=== PATIENT | male | born 1945 | race Caucasian/White ===

== ENCOUNTER 2019-12-21 22:50 | Emergency (ER) | payer MEDICARE ==
--- NOTE | 2019-12-21 23:51 | ER Document Report ---
ED Medical Screen (RME) - General Chief Complaint: General Weakness Stated Complaint: WEAKNESS/POSSIBLE SYNCOPE Time Seen by Provider: 12/21/19 23:47 Notes: 74-year-old male with history of cardiac disease presents for generalized weakness and near syncope. Per family patient has had generalized weakness for the past 3 weeks and has been evaluated by his PCP who diagnosed him with a bladder infection. Patient finished antibiotics, family thinks it was Keflex. Patient is also been evaluated by his video game tester who states no new cardiac disease. Patient had an episode of near syncope today. Patient is hard of hearing. Nontoxic, well-appearing. I have greeted and performed a rapid initial assessment of this patient. A comprehensive ED assessment and evaluation of the patient, analysis of test results and completion of the medical decision making process with be conducted by additional ED providers. TRAVEL OUTSIDE OF THE [place] IN LAST 30 DAYS: No - Related Data Allergies/Adverse Reactions: acetaminophen [From Vicodin] Adverse Reaction (Verified 12/21/19 23:43) Vomiting hydrocodone [From Vicodin] Adverse Reaction (Verified 12/21/19 23:43) Vomiting Penicillins Adverse Reaction (Verified 12/21/19 23:43) Vomiting Home Medications: Lasix 20mg daily. Vitamin d3. Carvedilol 12.5mg BID. Finasteride 5mg. Atorvastatin. glimepride Physical Exam - Vital signs Vitals: Temp Pulse Resp BP Pulse Ox 98.4 F 70 20 121/59 L 96 12/21/19 23:14 12/21/19 23:14 12/21/19 23:14 12/21/19 23:14 12/21/19 23:14 Course - Vital Signs Vital signs: Temp Pulse Resp BP Pulse Ox 98.4 F 70 20 121/59 L 96 12/21/19 23:14 12/21/19 23:14 12/21/19 23:14 12/21/19 23:14 12/21/19 23:14
[2019-12-22 00:50] LABS: ABSOLUTE BASOPHILS # (AUTO) 0.1 10^3/uL (0.0-0.2); ABSOLUTE EOSINOPHILS # (AUTO) 0.4 10^3/uL (0.0-0.6); ABSOLUTE LYMPHOCYTES (AUTO) 1.2 10^3/uL (0.5-4.7); ABSOLUTE MONOCYTES (AUTO) 1.1 10^3/uL (0.1-1.4); ABSOLUTE NEUT (AUTO) 8.6 10^3/uL (1.7-8.2); BASOPHILS % (AUTO) 0.9 % (0-2); EOSINOPHILS % (AUTO) 3.6 % (0-6); HEMATOCRIT 42.8 % (37.9-51.0); HEMOGLOBIN 14.4 g/dL (13.5-17.0); LYMPHOCYTES % (AUTO) 10.7 % (13-45); MEAN CORPUSCULAR HEMOGLOBIN 26.5 pg (27.0-33.4); MEAN CORPUSCULAR HGB CONC 33.7 g/dL (32.0-36.0); MEAN CORPUSCULAR VOLUME 79 fl (80-97); MONOCYTES % (AUTO) 9.8 % (3-13); PLATELET COUNT 223 10^3/uL (150-450); RED BLOOD COUNT 5.45 10^6/uL (4.35-5.55); RED CELL DISTRIBUTION WIDTH 16.5 % (11.5-14.0); TOTAL CELLS COUNTED % (AUTO) 100 %; WHITE BLOOD COUNT 11.5 10^3/uL (4.0-10.5)
--- NOTE | 2019-12-22 01:00 | RADIOLOGY REPORT (SQ) ---
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 Comparison: None available Findings: The cardiomediastinal silhouette is normal in size. No pneumothorax is seen. No acute airspace opacities are seen. No discrete pleural effusion is apparent. Midline sternotomy changes are seen. Impression: No acute airspace opacities are seen.
[2019-12-22 01:11] LABS: ALBUMIN 4.1 g/dL (3.5-5.0); ALKALINE PHOSPHATASE 105 U/L (38-126); ANION GAP 13 (5-19); ASPARTATE AMINO TRANSFERASE 37 U/L (17-59); BILIRUBIN,DIRECT 0.1 mg/dL (0.0-0.4); BLOOD UREA NITROGEN 47 mg/dL (7-20); CALCIUM 9.7 mg/dL (8.4-10.2); CARBON DIOXIDE 24 mmol/L (22-30); CHLORIDE 100 mmol/L (98-107); GLUCOSE 191 mg/dL (75-110); POTASSIUM 4.8 mmol/L (3.6-5.0); TOTAL PROTEIN 7.4 g/dL (6.3-8.2)
--- NOTE | 2019-12-22 01:22 | ER Document Report ---
ED General - General Chief Complaint: General Weakness Stated Complaint: WEAKNESS/POSSIBLE SYNCOPE Time Seen by Provider: 12/21/19 23:47 Mode of Arrival: Wheelchair Information source: Patient, Relative Cannot obtain history due to: Dementia TRAVEL OUTSIDE OF THE [place] IN LAST 30 DAYS: No - HPI Onset: Other - over the last few days Onset/Duration: Gradual Quality of pain: No pain Severity: Mild Pain Level: Denies Associated symptoms: Weakness, Other - dizziness, feeling like he may pass out, excessive sleeping Exacerbated by: Denies Relieved by: Denies Notes: 74 year old male with a history of Dementia, HTN, HLD, DM, CHF here for several weeks of generalized weakness and excessive sleeping. The patient's dementia is significant and he is not a reliable historian so the majority of the history is from his family. The patient denies almost everything I ask him but he does say he has felt dizzy on several occasions over the last several weeks. The patient denies chest pain or shortness of breath. - Related Data Allergies/Adverse Reactions: acetaminophen [From Vicodin] Adverse Reaction (Verified 12/21/19 23:43) Vomiting hydrocodone [From Vicodin] Adverse Reaction (Verified 12/21/19 23:43) Vomiting Penicillins Adverse Reaction (Verified 12/21/19 23:43) Vomiting Home Medications: Lasix 20mg daily. Vitamin d3. Carvedilol 12.5mg BID. Finasteride 5mg. Atorvastatin. glimepride Past Medical History - General Information source: Patient, Relative Cannot obtain history due to: Dementia - Social History Smoking Status: Unknown if Ever Smoked Frequency of alcohol use: None Drug Abuse: None Lives with: Family Family History: Reviewed & Not Pertinent Patient has suicidal ideation: No Patient has homicidal ideation: No - Past Medical History Cardiac Medical History: Reports: Hx Congestive Heart Failure, Hx Coronary Arter y Disease, Hx Hypercholesterolemia, Hx Hypertension, Other - Aortic Stenosis Neurological Medical History: Reports: Other - Dementia Review of Systems - Review of Systems Constitutional: Weakness, Other - excessive sleeping EENT: No symptoms reported Cardiovascular: Other - dizziness and pre-syncopal sensation Respiratory: No symptoms reported Gastrointestinal: No symptoms reported Genitourinary: No symptoms reported Male Genitourinary: No symptoms reported Musculoskeletal: No symptoms reported Skin: No symptoms reported Hematologic/Lymphatic: No symptoms reported Neurological/Psychological: Dementia -: Yes All other systems reviewed and negative Physical Exam - Vital signs Vitals: Temp Pulse Resp BP Pulse Ox 98.4 F 70 20 121/59 L 96 12/21/19 23:14 12/21/19 23:14 12/21/19 23:14 12/21/19 23:14 12/21/19 23:14 - Notes Notes: GENERAL: Chronically ill-appearing, well-nourished and in no acute distress. HEAD: Atraumatic, normocephalic. EYES: Pupils equal round and reactive to light, extraocular movements intact, sclera anicteric, conjunctiva are normal. ENT: TMs normal, nares patent, oropharynx clear without exudates. Moist mucous membranes. NECK: Normal range of motion, supple without lymphadenopathy or JVD. LUNGS: Breath sounds clear to auscultation bilaterally and equal. No wheezes rales or rhonchi. HEART: Regular rate and rhythm without murmurs, rubs or gallops. ABDOMEN: Soft, nontender, normoactive bowel sounds. No guarding, no rebound. No masses appreciated. EXTREMITIES: Normal range of motion, no pitting or edema. No clubbing or cyanosis. NEUROLOGICAL: Not oriented to situation or time but oriented to place and person. Cranial nerves II through XII grossly intact. Normal speech, normal gait. PSYCH: Normal mood, normal affect. SKIN: Warm, Dry, normal turgor, no rashes or lesions noted. Course - Re-evaluation Re-evalutation: 12/22/19 03:25 The patient has Aortic Stenosis and CHF and for the last several weeks he has been having dizzy spells and has been more tired then normal. Patient has a c hronically elevated Trop according to his Diamond Grinder Dr. Smith who I consulted. Dr. Smith told me the patient was supposed to have a aortic valve replacement but his Neurologist and other Doctors did not think it brizuela to have such a surgery. Patient has follow up with Dr. Smith of Cardiology. Patient had 2 Troponins in the ER and his second was actually down trending. Dr. Smith did not think the patient should be admitted to Trend his Trops since this has been a chronic issue for him and the thought is that his dementia is just worsening. - Vital Signs Vital signs: Temp Pulse Resp BP Pulse Ox 98 F 70 16 109/64 89 L 12/22/19 03:23 12/21/19 23:14 12/22/19 03:01 12/22/19 03:00 12/22/19 03:01 - Laboratory Result Diagrams: 12/22/19 00:35 12/22/19 00:35 Laboratory results interpreted by me: 12/22/19 12/22/19 12/22/19 00:05 00:35 00:35 WBC 11.5 H MCV 79 L MCH 26.5 L RDW 16.5 H Lymph % (Auto) 10.7 L Absolute Neuts (auto) 8.6 H Sodium 136.8 L BUN 47 H Creatinine 1.44 H Est GFR ( Amer) 58 L Est GFR (MDRD) Non-Af 48 L Glucose 191 H NT-Pro-B Natriuret Pep Urine Urobilinogen 2.0 H Leukocyte Esterase Rfl MODERATE H Urine Ascorbic Acid 40 H 12/22/19 00:35 WBC MCV MCH RDW Lymph % (Auto) Absolute Neuts (auto) Sodium BUN Creatinine Est GFR ( Amer) Est GFR (MDRD) Non-Af Glucose NT-Pro-B Natriuret Pep 3570 H Urine Urobilinogen Leukocyte Esterase Rfl Urine Ascorbic Acid - Diagnostic Test Radiology reviewed: Image reviewed, Reports reviewed - EKG Interpretation by Me EKG shows normal: Sinus rhythm, [place], Intervals Rate: Normal Rhythm: NSR When compared to previous EKG there are: Previous EKG unavailable Additional EKG results interpreted by me: 12/22/19 01:31 T wave inversions in III, PVC, nonspecific intraventricular conduction delay. Discharge - Discharge Clinical Impression: Dizziness Heart failure Qualifiers: Heart failure type: unspecified Heart failure chronicity: chronic Qualified Code(s): I50.9 - Heart failure, unspecified Condition: Stable Disposition: HOME, SELF-CARE Instructions: Dizziness ([facility]) Additional Instructions: Follow up with Dr. Smith of Cardiology and also follow up with your primary care doctor. Referrals: JENNA SIM MD [Primary Care Provider] - Follow up as needed ALEX SMITH MD [ACTIVE STAFF] - Follow up as needed
[2019-12-22] MEDS ORDERED: NORMAL SALINE 1000 ML 1,000 ML IV ONE (01:23)
[2019-12-22 01:37] LABS: APPEARANCE,URINE SLIGHTLY-CLOUDY; BILIRUBIN,URINE NEGATIVE (NEGATIVE); COLOR,URINE YELLOW; GLUCOSE, URINE NEGATIVE (NEGATIVE); KETONES,URINE NEGATIVE (NEGATIVE); PROTEIN,URINE NEGATIVE (NEGATIVE); URINE SPECIFIC GRAVITY 1.012
[2019-12-22 04:03] VITALS: BP 112/57
--- NOTE | 2019-12-22 16:17 | EKG REPORT ---
SEVERITY:- ABNORMAL ECG - SINUS RHYTHM VENTRICULAR PREMATURE COMPLEX FIRST DEGREE AV BLOCK NONSPECIFIC INTRAVENTRICULAR CONDUCTION DELAY ST DEPRESSION, CONSIDER ISCHEMIA, ANT LEADS : Confirmed by: Tracey Abbott MD 22-Dec-2019 16:17:19
== END 2019-12-22 04:28 | disposition home or self-care (01) ==
LOC: ER 22:50
DX: R42 Dizziness and giddiness (principal); I50.9 Heart failure, unspecified; R53.1 Weakness; R55 Syncope and collapse; F03.90 Unspecified dementia, unspecified severity, without behavioral disturbance, psychotic disturbance, mood disturbance, and anxiety; I25.10 Atherosclerotic heart disease of native coronary artery without angina pectoris; E78.00 Pure hypercholesterolemia, unspecified; I11.0 Hypertensive heart disease with heart failure; Z88.6 Allergy status to analgesic agent; Z88.0 Allergy status to penicillin
CPT/HCPCS: 93005; 36415; 87040; 83605; 85025; 80053; 81001; 84484; 83880; 71045; 93010; J7030; 87077; 87086; 87088; 96360; 96361; 99284

== ENCOUNTER 2020-02-11 18:44 | Emergency (ER) | payer MEDICARE ==
[2020-02-11] MEDS ORDERED: ONDANSETRON HCL INJ/PF 4 MG/2 ML SDV IV ONE (19:09)
--- NOTE | 2020-02-11 19:11 | ER Document Report ---
ED Medical Screen (RME) - General Chief Complaint: Vomiting Stated Complaint: VOMITING,ABDOMINAL PAIN,FLANK PAIN Time Seen by Provider: 02/11/20 19:00 Primary Care Provider: JENNA SIM MD [Primary Care Provider] - Follow up as needed TRAVEL OUTSIDE OF THE [place] IN LAST 30 DAYS: No - HPI Notes: 02/11/20 19:09 74-year-old male with a history of NE with 3 stents in 2015, type 2 diabetes and hypertension presents emergency room with complaints of abdominal pain with vomiting that started an hour and a half ago with sudden onset. No [id number] medications have been given. Worse with time, nothing makes better. No new medications foods or travel. No diarrhea. Blood sugar was checked after dinner and it was 164. Denies any chest pain shortness of breath, fever chills. Patient follows with Dr. 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 A comprehensive ED assessment and evaluation of the patient, analysis of test results and completion of the medical decision making process will be conducted by additional ED providers. PHYSICAL EXAMINATION: GENERAL: Well-appearing, well-nourished and in no acute distress. HEAD: Atraumatic, normocephalic. CV: s1, s2 regular LUNGS: No respiratory distress SKIN: Warm, Dry, normal turgor, no rashes or lesions noted. - Related Data Allergies/Adverse Reactions: acetaminophen [From Vicodin] Adverse Reaction (Verified 12/21/19 23:43) Vomiting hydrocodone [From Vicodin] Adverse Reaction (Verified 12/21/19 23:43) Vomiting Penicillins Adverse Reaction (Verified 12/21/19 23:43) Vomiting Past Medical History - Past Medical History Cardiac Medical History: Reports: Hx Congestive Heart Failure, Hx Coronary Artery Disease, Hx Heart Attack, Hx Hypercholesterolemia, Hx Hypertension Physical Exam - Vital signs Vitals: Temp Pulse Resp BP Pulse Ox 97.5 F 61 14 135/80 H 100 02/11/20 18:49 02/11/20 18:49 02/11/20 18:49 02/11/20 18:49 02/11/20 18:49 Course - Vital Signs Vital signs: Temp Pulse Resp BP Pulse Ox 97.5 F 61 14 135/80 H 100 02/11/20 18:49 02/11/20 18:49 02/11/20 18:49 02/11/20 18:49 02/11/20 18:49 Doctor's Discharge - Discharge Referrals: JENNA SIM MD [Primary Care Provider] - Follow up as needed
--- NOTE | 2020-02-11 20:02 | RADIOLOGY REPORT (SQ) ---
EXAM DESCRIPTION: CHEST SINGLE VIEW COMPLETED DATE/TIME: 02/11/2020 7:40 pm REASON FOR STUDY: vomiting COMPARISON: 12/22/2019 EXAM PARAMETERS: NUMBER OF VIEWS: One view. TECHNIQUE: Single frontal radiographic view of the chest acquired. RADIATION DOSE: NA LIMITATIONS: None. FINDINGS: LUNGS AND PLEURA: No opacities, masses or pneumothorax. No pleural effusion. MEDIASTINUM AND HILAR STRUCTURES: No masses. Contour normal. HEART AND VASCULAR STRUCTURES: Heart normal in size. Normal vasculature. BONES: No acute findings. HARDWARE: Sternotomy wires. OTHER: No other significant finding. IMPRESSION: NO ACUTE RADIOGRAPHIC FINDING IN THE CHEST. TECHNICAL DOCUMENTATION: JOB ID: [id number] 2010 [employer]- All Rights Reserved Reading location - IP/workstation name: [email or web address]
[2020-02-11 20:37] LABS: ABSOLUTE BASOPHILS # (AUTO) 0.1 10^3/uL (0.0-0.2); ABSOLUTE EOSINOPHILS # (AUTO) 0.1 10^3/uL (0.0-0.6); ABSOLUTE LYMPHOCYTES (AUTO) 1.8 10^3/uL (0.5-4.7); ABSOLUTE NEUT (AUTO) 13.5 10^3/uL (1.7-8.2); BASOPHILS % (AUTO) 0.6 % (0-2); EOSINOPHILS % (AUTO) 0.7 % (0-6); HEMATOCRIT 42.7 % (37.9-51.0); HEMOGLOBIN 14.6 g/dL (13.5-17.0); LYMPHOCYTES % (AUTO) 10.7 % (13-45); MEAN CORPUSCULAR HEMOGLOBIN 27.4 pg (27.0-33.4); MEAN CORPUSCULAR HGB CONC 34.1 g/dL (32.0-36.0); MEAN CORPUSCULAR VOLUME 80 fl (80-97); MONOCYTES % (AUTO) 6.3 % (3-13); PLATELET COUNT 154 10^3/uL (150-450); RED BLOOD COUNT 5.31 10^6/uL (4.35-5.55); RED CELL DISTRIBUTION WIDTH 17.5 % (11.5-14.0); SEGMENTED NEUTROPHILS % (AUTO) 81.7 % (42-78); TOTAL CELLS COUNTED % (AUTO) 100 %; WHITE BLOOD COUNT 16.5 10^3/uL (4.0-10.5)
[2020-02-11] MEDS ORDERED: NORMAL SALINE 500 ML IV ONE (20:38)
[2020-02-11] MEDS ORDERED: KETOROLAC TROMETHAMINE INJ/PF 30 MG/1 ML SDV IV ONE (20:39)
[2020-02-11 20:54] LABS: ALBUMIN 4.5 g/dL (3.5-5.0); ALKALINE PHOSPHATASE 123 U/L (38-126); ANION GAP 9 (5-19); ASPARTATE AMINO TRANSFERASE 28 U/L (17-59); BILIRUBIN,DIRECT 0.3 mg/dL (0.0-0.4); BILIRUBIN,TOTAL 0.7 mg/dL (0.2-1.3); BLOOD UREA NITROGEN 29 mg/dL (7-20); CALCIUM 9.4 mg/dL (8.4-10.2); CARBON DIOXIDE 27 mmol/L (22-30); CHLORIDE 100 mmol/L (98-107); GLUCOSE 157 mg/dL (75-110); POTASSIUM 4.9 mmol/L (3.6-5.0); TOTAL PROTEIN 7.8 g/dL (6.3-8.2)
--- NOTE | 2020-02-11 21:22 | ER Document Report ---
Entered by TIFFANY MARSHALL SCRIBE 02/11/202019 Acting as scribe for:LOPEZ DAVE IV, MD ED GI/ - General Chief Complaint: Vomiting Stated Complaint: VOMITING,ABDOMINAL PAIN,FLANK PAIN Time Seen by Provider: 02/11/20 19:00 Primary Care Provider: JENNA SIM MD [Primary Care Provider] - Follow up as needed Mode of Arrival: Wheelchair Information source: Patient, Relative - Notes: This 74 year old male patient with a history of dementia, CAD, CHF, NC, HLD, HTN, and type 2 diabetes presents to the ED today accompanied by his with complaints of nausea and vomiting with associated LLQ abdominal pain that started around 1730 this evening. Patient also reports left shoulder pain and left-sided lower back pain. states that the patient does have a history of diverticulitis and UTIs. Patient denies fever, chills, chest pain, or shortness of breath. TRAVEL OUTSIDE OF THE [place] IN LAST 30 DAYS: No - Related Data Allergies/Adverse Reactions: acetaminophen [From Vicodin] Adverse Reaction (Verified 12/21/19 23:43) Vomiting hydrocodone [From Vicodin] Adverse Reaction (Verified 12/21/19 23:43) Vomiting Penicillins Adverse Reaction (Verified 12/21/19 23:43) Vomiting Past Medical History - General Information source: Patient, Relative - - Social History Smoking Status: Former Smoker Cigarette use (# per day): No Chew tobacco use (# tins/day): No Smoking Education Provided: No Frequency of alcohol use: None Drug Abuse: None Lives with: Spouse/Significant other Family History: Reviewed & Not Pertinent Patient has suicidal ideation: No Patient has homicidal ideation: No - Past Medical History Cardiac Medical History: Reports: Hx Congestive Heart Failure, Hx Coronary Artery Disease, Hx Heart Attack, Hx Hypercholesterolemia, Hx Hypertension Past Surgical History: Reports: Hx Coronary Stent - x3 in 2015 Review of Systems - Review of Systems Constitutional: See HPI. denies: Chills, Fever EENT: No symptoms reported Cardiovascular: See HPI. denies: Chest pain Respiratory: See HPI. denies: Short of breath Gastrointestinal: See HPI, Abdominal pain, Nausea, Vomiting Genitourinary: No symptoms reported Male Genitourinary: No symptoms reported Musculoskeletal: See HPI, Back pain, Joint pain - Left shoulder Skin: No symptoms reported Hematologic/Lymphatic: No symptoms reported Neurological/Psychological: No symptoms reported -: Yes All other systems reviewed and negative Physical Exam - Vital signs Vitals: Temp Pulse Resp BP Pulse Ox 97.5 F 61 14 135/80 H 100 02/11/20 18:49 02/11/20 18:49 02/11/20 18:49 02/11/20 18:49 02/11/20 18:49 - General General appearance: Alert - HEENT Head: Normocephalic, Atraumatic Eyes: Normal Pupils: PERRL - Respiratory Respiratory status: No respiratory distress Chest status: Nontender Breath sounds: Normal Chest palpation: Normal - Cardiovascular Rhythm: Regular Heart sounds: Normal auscultation Murmur: No Friction rub: No Gallop: None auscultated - Abdominal Inspection: Normal Distension: No distension Bowel sounds: Normal Tenderness: Tender - Tender to palpate in LLQ, Other - Abdomen soft Organomegaly: No organomegaly - Back Back: Tender - Tender to palpate in left lumbar paraspinal muscles - Extremities General upper extremity: Normal inspection General lower extremity: Normal inspection - Neurological Neuro grossly intact: Yes - Psychological Associated symptoms: Normal affect, Normal mood - Skin Skin Temperature: Warm Skin Moisture: Dry Skin Color: Normal Course - Re-evaluation Re-evalutation: 02/12/20 00:48 Results of ED MSE discussed with patient and patient's spouse. All questions were answered prior to transfer. - Vital Signs Vital signs: Temp Pulse Resp BP Pulse Ox 97.5 F 61 18 102/78 97 02/11/20 18:49 02/11/20 18:49 02/12/20 00:15 02/12/20 00:36 02/12/20 00:15 - Laboratory Result Diagrams: 02/11/20 20:15 02/11/20 20:15 Laboratory results interpreted by me: 02/11/20 02/11/20 02/11/20 20:15 20:15 21:55 WBC 16.5 H RDW 17.5 H Lymph % (Auto) 10.7 L Absolute Neuts (auto) 13.5 H Seg Neutrophils % 81.7 H Sodium 136.2 L BUN 29 H Glucose 157 H Urine Blood SMALL H Ur Leukocyte Esterase MODERATE H Urine Ascorbic Acid 40 H - EKG Interpretation by Me Additional EKG results interpreted by me: 02/12/20 00:48 EKG obtained on 02/11/2020 at 2103 hrs. was interpreted by this MD. Findings: Sinus rhythm, first-degree AV block is present, rate is 76, P waves proceed QRS complexes, QRS complex appears narrow, there are no obvious ST segment elevation or depression patterns seen to suggest acute myocardial injury or infarction. Morphology of this EKG looks grossly the same compared to EKG done on 12/22/2019. Impression: Sinus rhythm with first-degree AV block and nonspecific ST segments - Consults dr. sheppard, vascular surgery, [facility] Time consulted: 00:25 Reason for consultation: 02/12/20 00:51 6 cm AAA with mural thrombus, pt c/o abdominal and back pain 02/12/20 00:52 requested pt be transferred to [facility] ED and have vascular surgery paged upon arrival Dr. Mathew Reyes, attending physician for [facility] ED, accepted pt for transfer to his facility at 0035 hours Discharge - Discharge Clinical Impression: Abdominal aortic aneurysm (AAA) greater than 5.5 cm in diameter in male UTI (urinary tract infection) Qualifiers: Urinary tract infection type: site unspecified Hematuria presence: without hematuria Qualified Code(s): N39.0 - Urinary tract infection, site not specified Condition: Good Disposition: [facility] Referrals: JENNA SIM MD [Primary Care Provider] - Follow up as needed I personally performed the services described in the documentation, reviewed and edited the documentation which was dictated to the scribe in my presence, and it accurately records my words and actions.
--- NOTE | 2020-02-11 21:54 | RADIOLOGY REPORT (SQ) ---
CLINICAL INDICATION: abd pain, vomiting. . TECHNIQUE: Contrast enhanced spiral axial CT imaging was obtained of the abdomen and pelvis with multiplanar reconstructions. This exam was performed according to our departmental dose-optimization program, which includes automated exposure control, adjustment of the mA and/or kV according to patient size and/or use of iterative reconstruction techniques. COMPARISON: None. CORRELATION: None. FINDINGS: Abdomen: The lung bases demonstrate mild chronic change. No dense consolidation. A small rounded area of airspace disease identified right lower lobe posterior medial, indeterminate measuring approximately 1.2 x 1.5 cm. This is of unknown chronicity, particularly given history of midline sternotomy. The heart is prominent with postsurgical change. No evidence of pleural or pericardial fluid. The liver is of normal size contour and attenuation. The gallbladder is physiologically distended without inflammatory change. The pancreas is atrophied. The spleen is unremarkable. The adrenals are unremarkable. The kidneys appear grossly normal without evidence of urolithiasis or hydronephrosis. There is no evidence of free air. No free fluid. No bulky adenopathy. Abdominal aorta is aneurysmally dilated. It reaches maximum cross-sectional dimension of 6 cm. It is somewhat irregular. There is significant mural thrombus within this but there is still a small patent cavity which provides supply to the [place] iliac system. 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 The internal iliac arteries are heavily diseased. An aortobifemoral bypass graft is also identified. This is widely patent.. Pelvis: The bowel is nonobstructed. The bowel is unopacified with oral contrast. Pelvic contents are unremarkable. The appendix is not seen. Fecal impaction within the rectum with distention to 10 cm. Diverticulosis without acute diverticulitis. Tiny fat-containing anterior abdominal wall hernias.. 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 Osteoporosis. Ankylosing arthropathy of the thoracic spine. IMPRESSION: No evidence of bowel obstruction. Fecal impaction within the rectum without surrounding inflammatory change. 6 cm infrarenal abdominal aortic aneurysm. There is substantial mural thrombus. There is however still a small patency centrally. An aortobifemoral bypass graft is identified which is patent providing supply to the lower extremities..
[2020-02-11 22:14] LABS: APPEARANCE,URINE SLIGHTLY-CLOUDY; BILIRUBIN,URINE NEGATIVE (NEGATIVE); COLOR,URINE YELLOW; GLUCOSE, URINE NEGATIVE (NEGATIVE); KETONES,URINE NEGATIVE (NEGATIVE); LEUKOCYTE ESTERASE,URINE MODERATE (NEGATIVE); NITRITE,URINE NEGATIVE (NEGATIVE); PROTEIN,URINE NEGATIVE (NEGATIVE); URINE SPECIFIC GRAVITY 1.015; UROBILINOGEN,URINE NEGATIVE mg/dL (<2.0)
[2020-02-12] MEDS ORDERED: CEFTRIAXONE INJ 1000 MG VIAL IV ONE (00:32)
[2020-02-12 01:16] VITALS: BP 66/48
--- NOTE | 2020-02-12 11:19 | EKG REPORT ---
SEVERITY:- ABNORMAL ECG - SINUS RHYTHM FIRST DEGREE AV BLOCK RIGHT BUNDLE BRANCH BLOCK ST ELEVATION AVR WITH DIFFUSE ST DEPRESSION ANTERIOR PRECORDIAL LEADS SUGGEST ISCHEMIA LAD. CLINICAL CORRELATION NEEDED. : Confirmed by: Benedict Alexis MD 12-Feb-2020 11:18:51
== END 2020-02-12 01:15 | disposition short-term general hospital (02) ==
LOC: ER 18:44
DX: I71.4 Abdominal aortic aneurysm, without rupture (principal); I51.3 Intracardiac thrombosis, not elsewhere classified; I44.0 Atrioventricular block, first degree; I25.10 Atherosclerotic heart disease of native coronary artery without angina pectoris; I10 Essential (primary) hypertension; E11.9 Type 2 diabetes mellitus without complications; R11.2 Nausea with vomiting, unspecified; R10.32 Left lower quadrant pain; R10.814 Left lower quadrant abdominal tenderness; M25.512 Pain in left shoulder; M54.5 Low back pain; Z87.440 Personal history of urinary (tract) infections; Z87.19 Personal history of other diseases of the digestive system; Z87.891 Personal history of nicotine dependence
CPT/HCPCS: 93005; 99285; 96361; 96374; 96375; 36415; 83690; 85025; 80053; 81001; 84484; 71045; 74177; 93010; J1885; J0696; J2405; J7040